=== PATIENT | female | born 1930 | race Caucasian/White ===

== ENCOUNTER 2019-06-16 10:37 | Emergency (ER) | payer MEDICARE, BC ==
[2019-06-16 10:51] VITALS: BP 172/84; PULSE 104
--- NOTE | 2019-06-16 11:10 | EDM.PDOC ---
ED HPI GENERAL MEDICAL PROBLEM - General Chief Complaint: General Stated Complaint: RAPID HEARTBEAT Time Seen by Provider: 06/16/19 10:59 Source of Information: Reports: Patient History Limitations: Reports: No Limitations - History of Present Illness INITIAL COMMENTS - FREE TEXT/NARRATIVE: Patient is a pleasant 88-year-old female who presents with complaints of "not feeling the best ". Her description of symptoms are very generalized and nonspecific. She states that she feels a more tired than normal and that she may be a little bit more short of breath with activity than normal. In the morning she states that her stomach feels "unsettled ", but not nauseous or painful. Denies any current abdominal pain, nausea, vomiting, or diarrhea. She also denies any fever or chills. She has had no known sick contacts. Denies chest pain. Denies dysuria. She has no history of [place] or CHF, however she does have a history of an aortic valve replacement with aortic stenosis and hypertension. She also has A. fib which is rate controlled with diltiazem. She is on Coumadin for anticoagulation. - Related Data Allergies Allergy/AdvReac Type Severity Reaction Status Date / Time No Known Allergies Allergy Verified 06/16/19 10:51 Home Meds: Home Meds Hydrochlorothiazide 12.5 mg PO DAILY 05/27/15 [History] Losartan [Cozaar] 100 mg PO DAILY 05/27/15 [History] amLODIPine [Norvasc] 5 mg PO DAILY 05/27/15 [History] atorvaSTATin [Lipitor] 40 mg PO DAILY 05/27/15 [History] Calcium Carbonate/Vitamin D3 [Calcium 500 + Vit D 400] 1 each PO BID 02/28/16 [ History] Fluticasone Propionate [Flonase] 2 spray NASBOTH DAILY 02/28/16 [History] Folic Acid 1 mg PO DAILY 02/28/16 [History] Lutein/Minerals/Vit A,C & E [Ocuvite] 1 tab PO DAILY 02/28/16 [History] [place]-3 Fatty Acids [Maxepa] 1,000 mg PO DAILY 02/28/16 [History] Timolol Maleate [Timoptic 0.5% Ophth Soln] 1 drop EYERT DAILY 02/28/16 [History] Diltiazem HCl [Cardizem Cd] 300 mg PO DAILY #30 cap.er.24h 03/05/16 [Rx] Warfarin [Coumadin] 2.5 mg PO DAILY #30 tablet 03/05/16 [Rx] Aspirin [Adult Low Dose Aspirin EC] 81 mg PO DAILY 03/08/16 [History] Warfarin [Coumadin] 5 mg PO DAILY 12/13/17 [History] Warfarin Sodium [Jantoven] 5 mg PO DAILY 06/16/19 [History] hydroCHLOROthiazide [Hydrochlorothiazide] 25 mg PO DAILY 06/16/19 [History] Past Medical History HEENT History: Reports: Cataract, Glaucoma Cardiovascular History: Reports: High Cholesterol, Hypertension, Other (See Below) Other Cardiovascular History: aortic stenosis Gastrointestinal History: Reports: [employer] History: Reports: Musculoskeletal History: Reports: Osteoarthritis - Infectious Disease History Infectious Disease History: Reports: Chicken Pox, Measles - Past Surgical History HEENT Surgical History: Reports: Cataract Surgery, Tonsillectomy Cardiovascular Surgical History: Reports: Valve Replacement Musculoskeletal Surgical History: Reports: None Dermatological Surgical History: Reports: Other (See Below) Social & Family History - Family History Family Medical History: Noncontributory - Tobacco Use Smoking Status *Q: Never Smoker - Caffeine Use Caffeine Use: Reports: Coffee, Soda, Tea - Recreational Drug Use Recreational Drug Use: No ED ROS GENERAL - Review of Systems Review Of Systems: Comprehensive ROS is negative, except as noted in HPI. ED EXAM, GENERAL - Physical Exam Exam: See Below Exam Limited By: No Limitations General Appearance: Alert, WD/WN, No Apparent Distress Throat/Mouth: Normal Inspection, Normal Lips, Normal Teeth, Normal Gums, Normal Oropharynx, Normal Voice, No Airway Compromise Head: Atraumatic, Normocephalic Neck: Normal Inspection, Supple, Non-Tender, Full Range of Motion Respiratory/Chest: No Respiratory Distress, Lungs Clear, Normal Breath Sounds, No Accessory Muscle Use, Chest Non-Tender Cardiovascular: Normal Peripheral Pulses, No Edema, No Gallop, No JVD, No Murmur , No Rub, Irregularly Irregular GI/Abdominal: Normal Bowel Sounds, Soft, Non-Tender, No Organomegaly, No Distention, No Abnormal Bruit, No Mass Extremities: Normal Inspection, Normal Range of Motion, Non-Tender, Normal Capillary Refill, No Pedal Edema Neurological: Alert, Oriented, CN II-XII Intact, Normal Cognition, Normal Gait, Normal Reflexes, No Motor/Sensory Deficits Psychiatric: Normal Affect, Normal Mood Skin Exam: Warm, Dry, Intact, Normal Color, No Rash Lymphatic: No Adenopathy EKG INTERPRETATION EKG Date: 06/16/19 Time: 11:07 Rhythm: A-Fib Rate (Beats/Min): 88 Blanch: LAD-Left Blanch Deviation (borderline) P-Wave: Absent QRS: Normal ST-T: Normal QT: Normal Course - Vital Signs Last Recorded V/S: Last Vital Signs Temp 98.2 F 06/16/19 10:49 Pulse 104 H 06/16/19 10:49 Resp 16 06/16/19 10:49 BP 172/84 H 06/16/19 10:49 Pulse Ox 99 06/16/19 10:49 - Orders/Labs/Meds Orders: Active Orders 24 hr Category Date Time Status EKG Documentation Completion [RC] STAT Care 06/16/19 11:06 Active Labs: Laboratory Tests 06/16/19 06/16/19 06/16/19 Range/Units 11:28 11:28 11:28 WBC 10.24 H (3.98-10.04) K/mm3 RBC 4.33 (3.98-5.22) M/mm3 Hgb 12.5 D (11.2-15.7) gm/dl Hct 38.4 (34.1-44.9) % MCV 88.7 (79.4-94.8) fl MCH 28.9 (25.6-32.2) pg MCHC 32.6 (32.2-35.5) g/dl RDW Std Deviation 41.1 (36.4-46.3) fL Plt Count 294 D (182-369) K/mm3 MPV 9.5 (9.4-12.3) fl Neut % (Auto) 84.0 H (34.0-71.1) % Lymph % (Auto) 5.8 L (19.3-51.7) % [place] % (Auto) 6.9 (4.7-12.5) % Eos % (Auto) 2.6 (0.7-5.8) Baso % (Auto) 0.4 (0.1-1.2) % Neut # (Auto) 8.60 H (1.56-6.13) K/mm3 Lymph # (Auto) 0.59 L (1.18-3.74) K/mm3 [place] # (Auto) 0.71 H (0.24-0.36) K/mm3 Eos # (Auto) 0.27 (0.04-0.36) K/mm3 Baso # (Auto) 0.04 (0.01-0.08) K/mm3 Sodium 138 (136-145) mEq/L Potassium 3.4 L (3.5-5.1) mEq/L Chloride 98 (98-107) mEq/L Carbon Dioxide 28 (21-32) mEq/L Anion Gap 15.4 H (5-15) BUN 24 H (7-18) mg/dL Creatinine 1.2 H (0.55-1.02) mg/dL Est Cr Clr Drug Dosing 29.72 mL/min Estimated GFR (MDRD) 42 (>60) mL/min BUN/Creatinine Ratio 20.0 H (14-18) Glucose 110 (83-115) mg/dL Calcium 9.6 (8.5-10.1) mg/dL Total Bilirubin 0.4 (0.2-1.0) mg/dL AST 19 (15-37) U/L ALT 37 (14-59) U/L Alkaline Phosphatase 97 (46-116) U/L Troponin I < 0.017 (0.00-0.056) ng/mL NT-Pro-B Natriuret Pep 2552 H (0-450) pg/mL Total Protein 8.0 (6.4-8.2) g/dl Albumin 3.3 L (3.4-5.0) g/dl Globulin 4.7 gm/dL Albumin/Globulin Ratio 0.7 L (1-2) TSH 3rd Generation 1.438 (0.358-3.74) uIU/mL Urine Color (Yellow) Urine Appearance (Clear) Urine pH (5.0-8.0) Ur Specific [place] (1.005-1.030) Urine Protein (Negative) Urine Glucose (UA) (Negative) Urine Ketones (Negative) Urine Occult Blood (Negative) Urine Nitrite (Negative) Urine Bilirubin (Negative) Urine Urobilinogen (0.2-1.0) Ur Leukocyte Esterase (Negative) Urine RBC (0-5) /hpf Urine WBC (0-5) /hpf Ur Squamous Epith Cells (0-5) /hpf Urine Bacteria (FEW) /hpf Urine Mucus (FEW) /hpf 06/16/19 Range/Units 11:35 WBC (3.98-10.04) K/mm3 RBC (3.98-5.22) M/mm3 Hgb (11.2-15.7) gm/dl Hct (34.1-44.9) % MCV (79.4-94.8) fl MCH (25.6-32.2) pg MCHC (32.2-35.5) g/dl RDW Std Deviation (36.4-46.3) fL Plt Count (182-369) K/mm3 MPV (9.4-12.3) fl Neut % (Auto) (34.0-71.1) % Lymph % (Auto) (19.3-51.7) % [place] % (Auto) (4.7-12.5) % Eos % (Auto) (0.7-5.8) Baso % (Auto) (0.1-1.2) % Neut # (Auto) (1.56-6.13) K/mm3 Lymph # (Auto) (1.18-3.74) K/mm3 [place] # (Auto) (0.24-0.36) K/mm3 Eos # (Auto) (0.04-0.36) K/mm3 Baso # (Auto) (0.01-0.08) K/mm3 Sodium (136-145) mEq/L Potassium (3.5-5.1) mEq/L Chloride (98-107) mEq/L Carbon Dioxide (21-32) mEq/L Anion Gap (5-15) BUN (7-18) mg/dL Creatinine (0.55-1.02) mg/dL Est Cr Clr Drug Dosing mL/min Estimated GFR (MDRD) (>60) mL/min BUN/Creatinine Ratio (14-18) Glucose (83-115) mg/dL Calcium (8.5-10.1) mg/dL Total Bilirubin (0.2-1.0) mg/dL AST (15-37) U/L ALT (14-59) U/L Alkaline Phosphatase (46-116) U/L Troponin I (0.00-0.056) ng/mL NT-Pro-B Natriuret Pep (0-450) pg/mL Total Protein (6.4-8.2) g/dl Albumin (3.4-5.0) g/dl Globulin gm/dL Albumin/Globulin Ratio (1-2) TSH 3rd Generation (0.358-3.74) uIU/mL Urine Color Yellow (Yellow) Urine Appearance Clear (Clear) Urine pH 6.0 (5.0-8.0) Ur Specific [place] 1.015 (1.005-1.030) Urine Protein Negative (Negative) Urine Glucose (UA) Negative (Negative) Urine Ketones Negative (Negative) Urine Occult Blood Trace-intact H (Negative) Urine Nitrite Negative (Negative) Urine Bilirubin Negative (Negative) Urine Urobilinogen 0.2 (0.2-1.0) Ur Leukocyte Esterase Negative (Negative) Urine RBC 5-10 H (0-5) /hpf Urine WBC 0-5 (0-5) /hpf Ur Squamous Epith Cells 0-5 (0-5) /hpf Urine Bacteria Few (FEW) /hpf Urine Mucus Few (FEW) /hpf Meds: Medications Discontinued Medications Generic Name Dose Route Start Last Admin Trade Name Freq PRN Reason Stop Dose Admin Potassium Chloride 20 meq 06/16/19 12:56 06/16/19 13:01 Klor-Con M20 PO 06/16/19 12:57 20 meq ONETIME ONE Administration - Re-Assessments/Exams Free Text/Narrative Re-Assessment/Exam: 06/16/19 12:56 Patient's work-up was grossly unremarkable. There are no signs of urinary tract infection, pneumonia, or CHF exacerbation. Her potassium is mildly low at 3.4, I will replace with 20 mEq of p.o. potassium. BUN and creatinine were mildly elevated. BUN was 24 creatinine 1.2, however this is in normal range for this patient. Troponin was negative. BNP was elevated at 2552, however there are no signs of pulmonary congestion or peripheral edema. TSH was normal. Patient has an appointment tomorrow with her primary care provider, Dr. Flores. We will discharge her home with the recommendation that she follow-up with him tomorrow. Departure - Departure Time of Disposition: 12:59 Disposition: Home, Self-Care 01 Condition: Fair Clinical Impression: Fatigue Qualifiers: Fatigue type: unspecified Qualified Code(s): R53.83 - Other fatigue - Discharge Information *PRESCRIPTION DRUG MONITORING PROGRAM REVIEWED*: No *COPY OF PRESCRIPTION DRUG MONITORING REPORT IN PATIENT SAMMI: No Instructions: Fatigue Referrals: Martín Flores MD [Primary Care Provider] - Forms: ED Department Discharge Additional Instructions: You were seen in the emergency department today for increased fatigue. Work-up included blood work, chest x-ray, and EKG. Work-up did show a mildly low potassium. You received potassium replacement while in the ER. Your work-up was negative for any signs of pneumonia, urinary tract infection, or cardiac event. Recommend that you ensure that you are getting adequate rest and hydration. I would recommend that you keep your follow-up appointment that you have tomorrow with Dr. Salcedo to discuss today's findings. If you should experience any worsening symptoms, please do not hesitate to return to the emergency department. Sepsis Event Note - Evaluation Sepsis Screening Result: No Definite Risk - Focused Exam Vital Signs: Vital Signs Temp Pulse Resp BP Pulse Ox 06/16/19 10:49 98.2 F 104 H 16 172/84 H 99 Date Exam was Performed: 06/16/19 Time Exam was Performed: 22:08 - My Orders Last 24 Hours: My Active Orders 06/16/19 11:06 EKG Documentation Completion [RC] STAT - Assessment/Plan Last 24 Hours: My Active Orders 06/16/19 11:06 EKG Documentation Completion [RC] STAT
--- NOTE | 2019-06-16 11:40 | CR ---
Chest: Two views of the chest were obtained. Comparison: Prior chest x-ray of 12/13/17. Findings: Nodule is identified behind the left heart. This appears to be stable from prior exam and most likely is due to granuloma. Aortic valve is noted. Lungs are clear with no acute parenchymal change. Bony structures are unremarkable. Impression: 1. Findings as noted above. 2. Nothing acute is seen. Diagnostic code #2 Study was dictated in [place] Standard Time
[2019-06-16] MEDS ORDERED: Potassium Chloride 20 MEQ Tab.ER PO ONE (12:56)
== END 2019-06-16 13:11 | disposition home or self-care (01) ==
LOC: JD.ED 10:37
DX: R53.83 Other fatigue (principal); I10 Essential (primary) hypertension; E78.00 Pure hypercholesterolemia, unspecified; K21.9 Gastro-esophageal reflux disease without esophagitis; Z79.899 Other long term (current) drug therapy; Z79.82 Long term (current) use of aspirin; Z79.01 Long term (current) use of anticoagulants
CPT/HCPCS: 36415; 71046; 80053; 81001; 83880; 84443; 84484; 85025; 93005; 99285; A9270; 93010; 99283